=== PATIENT | male | born 1975 | race Caucasian/White ===

== ENCOUNTER 2019-01-25 17:56 | Emergency (ER) | payer OTHER ==
[~2019-01-25] VITALS: Ht 162.6 cm; Wt 57.2 kg
[2019-01-25 18:05] VITALS: BP_SYST 115
[2019-01-25] MEDS ORDERED: NACL 0.9% 1,000 ML IV ONE ×2 (18:30)
[2019-01-25] MEDS ORDERED: ASPIRIN 81 MG TAB.CHEW PO ONE (18:30)
[2019-01-25] MEDS ORDERED: KETOROLAC TROMETHAMINE 30 MG VIAL IVP ONE (18:30)
[2019-01-25 18:35] VITALS: BP_SYST 128
--- NOTE | 2019-01-25 18:35 | NUR ---
Patient to ER bed 4 to gown for evaluation. Side rails up. Report given to SHANTEL Dc.
--- NOTE | 2019-01-25 18:37 | NUR ---
ER at bedside examining patient.
--- NOTE | 2019-01-25 18:40 | NUR ---
RN meets pt . pt is stable with c/o right flank pain starting this morning.
[2019-01-25 19:12] LABS: BASOPHILS % (AUTO) 0.3 % (0.0-2.0); EOSINOPHILS # (AUTO) 0.1 K/uL (0.0-0.4); EOSINOPHILS % (AUTO) 0.9 % (0.0-4.0); HEMATOCRIT 44.7 % (36-54); HEMOGLOBIN 15.2 g/dL (14.0-18.0); LYMPHOCYTES # (AUTO) 2.2 K/uL (1.0-5.5); LYMPHOCYTES % (AUTO) 31.7 % (20.5-51.5); MEAN CORPUSCULAR HEMOGLOBIN 29 pg (27-31); MEAN CORPUSCULAR HGB CONC 34 % (32-36); MEAN CORPUSCULAR VOLUME 85 fL (79.0-98.0); MONOCYTES # (AUTO) 0.6 K/uL (0.0-1.0); MONOCYTES % (AUTO) 8.8 % (1.7-9.3); NEUTROPHILS # (AUTO) 4.1 K/uL (1.8-7.7); NEUTROPHILS % (AUTO) 58.3 % (40.0-70.0); PLATELET COUNT (AUTO) 192 K/uL (130-430); RED BLOOD CELL COUNT(AUTO) 5.27 MIL/uL (4.2-6.2); RED CELL DISTRIBUTION WIDTH 13.6 % (9.0-15.0); WHITE BLOOD COUNT (AUTO) 7.1 K/uL (4.8-10.8)
--- NOTE | 2019-01-25 19:14 | NUR ---
pt refused IV insertion and refused the pain medication. pt stated he wants to diagnosed first. CT just done.
[2019-01-25 19:32] LABS: CREATININE 0.77 mg/dL (0.55-1.30); POTASSIUM 3.4 mmol/L (3.5-5.1)
[2019-01-25 19:38] LABS: ALBUMIN 4.4 g/dL (3.4-4.8); TOTAL BILIRUBIN 0.4 mg/dL (0.0-1.0)
[2019-01-25 20:02] LABS: BILIRUBIN,URINE NEGATIVE (NEGATIVE); BLOOD, URINE NEGATIVE (NEGATIVE); CLARITY/URINE CLEAR (CLEAR); COLOR,URINE YELLOW (YELLOW); GLUCOSE,URINE NEGATIVE (NEGATIVE); KETONES,URINE TRACE (NEGATIVE); LEUKOCYTE ESTERASE ,URINE NEGATIVE (NEGATIVE); NITRITE, URINE NEGATIVE (NEGATIVE); PH,URINE 5.5 (5.0-8.0); PROTEIN URINE NEGATIVE (NEGATIVE); UROBILINOGEN,URINE 0.2 (0.2-1.0)
[2019-01-25 20:13] LABS: PROTHROMBIN TIME 10.2 SECS (9.5-12.5)
[2019-01-25 20:25] LABS: CKMB RELATIVE INDEX 0.8 (0.0-2.9); CREATINE KINASE MB 3.7 ng/mL (0-3.6)
[2019-01-25 20:45] VITALS: BP_SYST 122
--- NOTE | 2019-01-25 20:45 | NUR ---
Patient given written and verbal discharge instructions and verbalizes understanding. ER MD discussed with patient the results and treatment provided. Patient in stable condition. ID arm band removed. NO IV, PT REFUSED Rx of Motrin, Tramadol given. Patient educated on pain management and to follow up with PMD. Pain Scale 0/10. Opportunity for questions provided and answered. Medication side effect fact sheet provided.
== END 2019-01-25 20:45 | disposition home or self-care (01) ==
LOC: SED 17:56
DX: M79.18 Myalgia, other site (principal); G43.909 Migraine, unspecified, not intractable, without status migrainosus
CPT/HCPCS: 36415; 71045; 74176; 80053; 81003; 82550; 82553; 83690; 85025; 85610; 85730; 93005; 99284; J1885